=== PATIENT | female | born 1965 | race Caucasian/White ===

== ENCOUNTER 2017-12-02 11:05 | Day surgery (SDC) | payer OTHER ==
[2017-11-30 14:30] VITALS: BMI 19.0
[2017-12-02] MEDS ORDERED: DEXAMETHASONE SOD PHOSPHATE/PF 10 MG/ML SDV ONE (12:32)
[2017-12-02] MEDS ORDERED: MIDAZOLAM HCL 2 MG/2 ML SINGLE DOSE VIAL ONE (12:32)
[2017-12-02] MEDS ORDERED: ROPIVACAINE HCL 0.5% 30ML VIAL ONE (12:32)
[2017-12-02] MEDS ORDERED: PROPOFOL 20 ML ONE ×2 (12:44)
[2017-12-02] MEDS ORDERED: SUCCINYLCHOLINE CHLORIDE 200 MG/10 ML VIAL ONE (12:44)
[2017-12-02] MEDS ORDERED: GUM MASTIC/STORAX/MSAL/ALCOHOL 1 DRP DROPSBTL MC ONE (14:29)
[2017-12-02] MEDS ORDERED: ONDANSETRON 4 MG/2 ML VIAL ONE (15:07)
[2017-12-02] MEDS ORDERED: ONDANSETRON 4 MG/2 ML VIAL IVPUSH PRN (15:12)
[2017-12-02] MEDS ORDERED: oxyCODONE HCL 5 MG TABLET PO PRN ×2 (15:12)
[2017-12-02] MEDS ORDERED: PROMETHAZINE HCL 25 MG/1 ML VIAL IVPUSH PRN (15:12)
[2017-12-02] MEDS ORDERED: LACTATED RINGERS SOLUTION 1,000 ML IV SCH (15:15)
[2017-12-02 15:54] VITALS: TEMP 98.2
[2017-12-02 17:10] VITALS: BP 150/82; PULSE 97
--- NOTE | 2017-12-03 09:41 | OP ---
DATE OF OPERATION: 12/02/2017 PREOPERATIVE DIAGNOSIS: Right comminuted, displaced distal radius fracture. POSTOPERATIVE DIAGNOSIS: Right comminuted, displaced distal radius fracture. OPERATIVE PROCEDURES: 1. Open reduction and internal fixation of right comminuted, displaced distal radius fracture with internal fixation of 3 or more fragments. 2. Right brachioradialis tenotomy. SURGEON: Bryon Coello MD DRILL OPERATOR: RADHA Carrasco COMPLICATIONS: None. ESTIMATED BLOOD LOSS: Minimal. INDICATION FOR PROCEDURE: The patient is a 52-year-old female with the above finding, indicated for operative treatment. Risks, benefits, and alternatives were discussed with the patient at length. Proper informed consent was obtained. DESCRIPTION OF PROCEDURE: After proper identification of the patient and the correct operative site, the patient was brought to the operating room and placed supine on the operating table. Prominences were well padded. Sedation was given by the anesthesiologist. Regional anesthesia was given. The right upper extremity was prepped and draped in usual sterile fashion. A well-padded tourniquet was placed as well as a sterile prep. Esmarch bandage was used to exsanguinate the right upper extremity. Tourniquet was inflated to 250 mmHg. A longitudinal incision was made over the volar aspect of the distal radius. Incision was taken sharply through the skin, with blunt and sharp dissection through subcutaneous tissues. The flexor carpi radialis tendon along with the contents of the carpal canal was bluntly and gently sharply retracted in an ulnarward direction for the remainder of the procedure. The pronator quadratus was divided longitudinally. Fracture was visualized and found to be significantly impacted and displaced and comminuted. A brachioradialis tenotomy was performed in a subcutaneous fashion in order to free up the radial styloid fragment for reduction. Once this was accomplished, the fracture was reduced. This was then held with an Acumed AccuLock narrow plate with distal locking screws and proximal nonlocking screws. This provided a secure, stable fixation of the fracture and satisfactory position. Scapholunate interval and distal joints were stressed and found to be stable. Radiographs showed that the ulnar fracture was well aligned. Wound was irrigated with saline and repaired in layers using 4-0 Vicryl and 4-0 Monocryl suture. Steri-Strips, sterile dressings, and a splint were placed. Patient was reversed from anesthesia and brought to recovery room in stable condition. She tolerated the procedure well. RADHA Carrasco, the social science research assistant, was integral throughout the procedure. Procedure could not have been performed without a skilled operative social science research assistant. BRYON COELLO M.D. [id number]
== END 2017-12-02 16:35 | disposition home or self-care (01) ==
LOC: FASU 11:05
PROVIDERS: ATTEND Orthopaedic Surgery Hand Surgery
PROC: 0LN50ZZ Release Right Lower Arm and Wrist Tendon, Open Approach (ICD-10-PCS; 2017-12-02)
PROC: 0PSH04Z Reposition Right Radius with Internal Fixation Device, Open Approach (ICD-10-PCS; principal; 2017-12-02 13:48)
DX: S52.501A Unspecified fracture of the lower end of right radius, initial encounter for closed fracture (principal); X58.XXXA Exposure to other specified factors, initial encounter; Y93.9 Activity, unspecified; Y92.9 Unspecified place or not applicable
CPT/HCPCS: 73110-TC-RT; 84703; 94760

== ENCOUNTER 2022-06-18 07:49 | Day surgery (SDC) | payer OTHER ==
[2022-06-12 13:59] VITALS: BMI 19.4
[~2022-06-18 07:49] MED LIST: LACTATED RINGERS SOLUTION 1,000 ML IV SCH; PROMETHAZINE HCL 25 MG/1 ML VIAL IVPUSH PRN; oxyCODONE HCL 5 MG TABLET PO PRN
[2022-06-18] MEDS ORDERED: LIDOCAINE HCL/PF 2% SDV 5ML VIAL ONE (07:58)
[2022-06-18] MEDS ORDERED: KETOROLAC TROMETHAMINE 30 MG/1 ML VIAL ONE (07:58)
[2022-06-18] MEDS ORDERED: PROPOFOL 20 ML ONE (07:58)
[2022-06-18] MEDS ORDERED: ONDANSETRON 4 MG/2 ML VIAL ONE (07:58)
[2022-06-18] MEDS ORDERED: DEXAMETHASONE SOD PHOSPHATE 4 MG/1 ML VIAL ONE (07:58)
[2022-06-18] MEDS ORDERED: MIDAZOLAM HCL 2 MG/2 ML SINGLE DOSE VIAL ONE (08:56)
[2022-06-18 10:11] VITALS: RESP 18; TEMP 97.6
[2022-06-18 10:24] VITALS: BP 110/64; PULSE 88
== END 2022-06-18 10:36 | disposition home or self-care (01) ==
LOC: FASU 07:49
PROVIDERS: ATTEND Orthopaedic Surgery Hand Surgery
PROC: 0JBJ0ZZ Excision of Right Hand Subcutaneous Tissue and Fascia, Open Approach (ICD-10-PCS; 2022-06-18)
PROC: 0HQQXZZ Repair Finger Nail, External Approach (ICD-10-PCS; 2022-06-18)
PROC: 0JBJ0ZZ Excision of Right Hand Subcutaneous Tissue and Fascia, Open Approach (ICD-10-PCS; principal; 2022-06-18 09:41)
DX: M79.89 Other specified soft tissue disorders (principal)
CPT/HCPCS: 88305-TC